=== PATIENT | male | born 1995 | race Caucasian/White ===

== ENCOUNTER 2019-07-08 14:49 | Emergency (ER) | payer BC ==
[2019-07-08 15:00] VITALS: BP 143/90
--- NOTE | 2019-07-08 15:20 | UC ---
Eye Complaint HPI - HPI Summary HPI Summary: Patient is a 24yo male presenting with "a piece of an old lampshade" in the right eye. States this happened 30minutes ago when he went to throw it away and it cracked. States he "can see it right in the corner of his eye." States he is afraid to blink because he does not want it to move. Denies foreign body sensation. Denies any pain. Denies vision changes. Does wear contacts. - History of Current Complaint Chief Complaint: UCEye Stated Complaint: EYE INJURY Hx Obtained From: Patient Pain Intensity: 0 - Allergies/Home Medications Allergies/Adverse Reactions: Allergies Allergy/AdvReac Type Severity Reaction Status Date / Time No Known Allergies Allergy Verified 07/08/19 15:00 Home Medications: Home Medications NK [No Home Medications Reported] 07/08/19 [History Confirmed 07/08/19] PMH/Surg Hx/FS Hx/Imm Hx - Surgical History Surgical History: Yes Surgery Procedure, Year, and Place: wisdom teeth - Family History Known Family History: Positive: Non-Contributory - Social History Alcohol Use: Daily Alcohol Amount: 3 Substance Use Type: None Smoking Status (MU): Light Every Day Tobacco Smoker Amount Used/How Often: 5 daily Review of Systems All Other Systems Reviewed And Are Negative: No Constitutional: Positive: Negative Skin: Positive: Negative Eyes: Positive: Other - foreign body right eye. Negative: Blurred Vision, Diplopia, Drainage, Eye Redness, Photophobia Respiratory: Positive: Negative Cardiovascular: Positive: Negative Neurological/Mental Status: Positive: Negative Psychological: Positive: Negative Physical Exam - Summary Physical Exam Summary: Vital Signs Reviewed: Yes A+Ox3, no distress Eyes: Conjunctiva Clear, WALKER, EOM intact and full. Small 2mm pale yellow foreign body noted in medial canthus of right eye ENT: Hearing grossly normal neck: supple Respiratory: Positive: No respiratory distress, No accessory muscle use Cardiovascular: skin color reflect adequate perfusion Musculoskeletal Exam: ROJAS x 4 without difficulty Neurological: Positive: Alert, ambulatory without difficulty Psychological: Positive: age appropriate behavior Skin: Positive: no rash, no ecchymosis Vital Signs: Initial Vital Signs Temp 99.5 F 07/08/19 14:54 Pulse 77 07/08/19 14:54 Resp 16 07/08/19 14:54 BP 143/90 07/08/19 14:54 Pulse Ox 100 07/08/19 14:54 Eye Complaint Course/Dx - Course Course Of Treatment: I removed the foreign body from the medial canthus of the right eye with a pair of forceps without complication. The foreign body did not puncture or embed into any tissue. Patient denied any pain or foreign body sensation and insisted there was nothing else in his eye. Declined fluorescein staining to exam eye further for any other foreign body or abrasion. Instructed patient to return or follow up with Dr. Gamez if he develops any new symptoms. Patient voiced understanding and agreed with treatment plan. - Differential Dx/Diagnosis Differential Diagnosis/HQI/PQRI: Corneal Abrasion, Foreign Body Provider Diagnosis: Foreign body of right eye Discharge ED - Sign-Out/Discharge Documenting (check all that apply): Patient Departure All imaging exams completed and their final reports reviewed: No Studies - Discharge Plan Condition: Stable Disposition: HOME Patient Education Materials: Eye Foreign Body (ED) Referrals: Bruce Gamez MD [Medical Doctor] - If Needed Additional Instructions: The foreign body was removed from your eye today. No further treatment is needed. Follow up with the ophthalmology referral listed below if any new symptoms occur. - Billing Disposition and Condition Condition: STABLE Disposition: Home
== END 2019-07-08 15:19 | disposition home or self-care (01) ==
LOC: UCEAST 14:49
DX: T15.81XA Foreign body in other and multiple parts of external eye, right eye, initial encounter (principal); F17.290 Nicotine dependence, other tobacco product, uncomplicated; X58.XXXA Exposure to other specified factors, initial encounter; Y93.89 Activity, other specified; Y92.9 Unspecified place or not applicable
CPT/HCPCS: 65205; 99211; G0463